=== PATIENT | female | born 1980 | race Caucasian/White ===

== ENCOUNTER → 2016-04-11 | Outpatient (CLI) | payer OTHER ==
[~2016-04-11] MED LIST: /AUGM875TA; ACET65TA; BENZAMYCGE TOPICAL; FERR325T3 PO; IRON28TA; LABE20TAB PO; LOESTRIN24 PO; MOTR200T44 PO; ORTHOTRI PO; PERC5TAB6 PO; PERC7.5T8; PERCOCET PO; THERGRAN; [UNRECOGNIZED DRUG - OTHER]
[2016-04-11 16:19] LABS: PERCENT SATURATION 3.9 % (13.2-37.4)
== END ==
LOC: M WUC 13:11
PROVIDERS: ATTEND Internal Medicine Cardiovascular Disease
DX: D64.9 Anemia, unspecified (principal)

== ENCOUNTER → 2017-11-03 | Outpatient (CLI) | payer OTHER | LOC: M RAD 17:14 | DX: Z36.9 Encounter for antenatal screening, unspecified (principal); Z3A.01 Less than 8 weeks gestation of pregnancy | CPT/HCPCS: 76801 ==

== ENCOUNTER → 2022-06-27 | Outpatient (REF) | payer OTHER ==
[~2022-06-27] MED LIST changes: +PERC5TAB12 PO; -PERC5TAB6 PO
== END ==
LOC: M WUC 20:28
PROVIDERS: ATTEND Student in an Organized Health Care Education/Training Program
DX: R30.0 Dysuria (principal)

== ENCOUNTER → 2023-09-25 | Outpatient (CLI) | payer OTHER ==
[2023-09-25 18:43] LABS: CARCINOEMBRYONIC ANTIGEN < 2.0 NG/ML (<2.5)
[2023-09-25 18:59] LABS: CA15-3 ANTIGEN 27.3 U/ML (<32.4)
== END ==
LOC: M WUC 12:36
PROVIDERS: ATTEND Nurse Practitioner Adult Health
DX: K76.9 Liver disease, unspecified (principal); M89.9 Disorder of bone, unspecified; N63.20 Unspecified lump in the left breast, unspecified quadrant

== ENCOUNTER → 2023-10-06 | Outpatient (CLI) | payer OTHER ==
[2023-10-06 14:43] LABS: ALBUMIN 3.4 G/DL (3.2-5.2); ALKALINE PHOSPHATASE 159 U/L (46-116); ALT/SGPT 54 U/L (7.0-40); AST/SGOT 351 U/L (<34); BILIRUBIN,TOTAL 0.3 MG/DL (0.3-1.2); BLOOD UREA NITROGEN 28 MG/DL (9-23); CALCIUM LEVEL 12.3 MG/DL (8.5-10.1); CARBON DIOXIDE LEVEL 25 MMOL/L (20-31); CHLORIDE LEVEL 98 MMOL/L (98-107); CREATININE FOR GFR 0.91 MG/DL (0.55-1.30); GLOMERULAR FILTRATION RATE > 60.0 (>58); GLUCOSE, FASTING 89 MG/DL (60-100); POTASSIUM SERUM 4.4 MMOL/L (3.5-5.1); SODIUM LEVEL 134 MMOL/L (136-145); TOTAL PROTEIN 7.6 G/DL (5.7-8.2)
== END ==
LOC: M LAB 13:12
PROVIDERS: ATTEND Internal Medicine Hematology & Oncology
DX: C79.9 Secondary malignant neoplasm of unspecified site (principal); C50.912 Malignant neoplasm of unspecified site of left female breast; D64.9 Anemia, unspecified

== ENCOUNTER → 2023-11-12 | Outpatient (CLI) | payer OTHER ==
[2023-11-12 10:16] LABS: HEMATOCRIT 23.6 % (36.0-47.0); HEMOGLOBIN 7.5 g/dl (12.0-15.5); MEAN CORPUSCULAR HEMOGLOBIN 26.9 pg (27.0-33.0); MEAN CORPUSCULAR HGB CONC 31.8 g/dl (32.0-36.5); MEAN CORPUSCULAR VOLUME 84.6 fl (80.0-96.0); RED BLOOD COUNT 2.79 10^6/uL (4.00-5.40); WHITE BLOOD COUNT 6.1 10^3/uL (4.0-10.0)
[2023-11-12 10:47] LABS: PLATELET COUNT, AUTOMATED 75 10^3/uL (150-450)
[2023-11-12 10:48] LABS: ALKALINE PHOSPHATASE 338 U/L (46-116); ALT/SGPT 99 U/L (7.0-40); AST/SGOT 142 U/L (<34); BILIRUBIN,TOTAL 0.4 MG/DL (0.3-1.2); BLOOD UREA NITROGEN 10 MG/DL (9-23); CALCIUM LEVEL 8.8 MG/DL (8.5-10.1); CARBON DIOXIDE LEVEL 24 MMOL/L (20-31); CHLORIDE LEVEL 107 MMOL/L (98-107); CREATININE FOR GFR 0.63 MG/DL (0.55-1.30); GLOMERULAR FILTRATION RATE > 60.0 (>58); GLUCOSE, FASTING 97 MG/DL (60-100); POTASSIUM SERUM 3.9 MMOL/L (3.5-5.1); SODIUM LEVEL 137 MMOL/L (136-145); TOTAL PROTEIN 6.9 G/DL (5.7-8.2)
[2023-11-12 10:53] LABS: ATYPICAL LYMPH 1 % (0-5); LYMPHOCYTES 30 % (16-44); METAMYELOCYTES 1 % (0-0); MONOCYTES 7 % (0-5); MYELOCYTES 1 % (0-0); NEUTROPHILS 55 % (28-66)
[2023-11-12 10:54] LABS: ANISOCYTOSIS 3+; HYPOCHROMASIA 1+; PLATELET ESTIMATE DECREASED (NORMAL)
[2023-11-12 10:55] LABS: HELMET CELLS 1+; TEAR DROP CELLS 1+
[2023-11-12 10:56] LABS: POLYCHROMASIA 1+
== END ==
LOC: M WUC 08:17
PROVIDERS: ATTEND Internal Medicine Hematology & Oncology
DX: C79.9 Secondary malignant neoplasm of unspecified site (principal); D64.9 Anemia, unspecified

== ENCOUNTER 2023-12-16 09:25 | Observation (INO) | payer OTHER ==
[~2023-12-16] VITALS: Ht 177.8 cm; Wt 77.2 kg
[2023-12-16] MEDS: LIDOCAINE 5% (LIDODERM) PATCH TD SCH (09:00)
[~2023-12-16 09:25] MED LIST changes: +DULoxetine 30MG CAPSULE (CYMBALTA) PO SCH
[2023-12-16] MEDS ORDERED: ONDA-282 PO (09:41)
[2023-12-16] MEDS ORDERED: OXYC-517 PO (09:41)
[2023-12-16] MEDS ORDERED: MORP-69 PO (09:41)
[2023-12-16] MEDS ORDERED: DULO1CAP5 PO (09:41)
[2023-12-16] MEDS ORDERED: PANT40TA29 PO (09:41)
[2023-12-16] MEDS ORDERED: LIDO1PAD TD (09:41)
[2023-12-16] MEDS ORDERED: GABA-1172 PO (09:41)
[2023-12-16] MEDS ORDERED: TRAN650T PO (09:41)
[2023-12-16] MEDS ORDERED: SENN1TAB96 PO (09:41)
[2023-12-16] MEDS ORDERED: MEGE40TA3 PO (09:41)
[2023-12-16] MEDS ORDERED: LORA1TAB23 PO (09:41)
[2023-12-16] MEDS ORDERED: LIDO30CR18 TD (09:41)
[2023-12-16 10:35] LABS: VENOUS BASE EXCESS -9.7 (-2.0-2.0); VENOUS HCO3 16.5 MMOL/L (23.0-27.0); VENOUS O2 SATURATION 45.4 % (60.0-80.0); VENOUS PARTIAL PRESSURE CO2 37.1 mmHg (38.0-50.0); VENOUS PARTIAL PRESSURE O2 27.2 mmHg (30.0-50.0); VENOUS PH 7.266 UNITS (7.330-7.430); VENOUS STANDARD HCO3 15.9 MMOL/L; VENOUS TOTAL CO2 17.6 MMOL/L (24.0-28.0)
[2023-12-16 10:37] LABS: HEMATOCRIT 28.3 % (36.0-47.0); HEMOGLOBIN 9.6 g/dl (12.0-15.5); MEAN CORPUSCULAR HEMOGLOBIN 28.6 pg (27.0-33.0); MEAN CORPUSCULAR HGB CONC 33.9 g/dl (32.0-36.5); MEAN CORPUSCULAR VOLUME 84.2 fl (80.0-96.0); RED BLOOD COUNT 3.36 10^6/uL (4.00-5.40); WHITE BLOOD COUNT 5.8 10^3/uL (4.0-10.0)
[2023-12-16 10:41] LABS: PLATELET COUNT, AUTOMATED 57 10^3/uL (150-450)
[2023-12-16] MEDS: NS 2,180 ML in IV 1 EA IV ONE (10:41)
[2023-12-16 10:44] LABS: INR 1.1; PARTIAL THROMBOPLASTIN TIME 31.5 SECONDS (24.8-34.2); PROTHROMBIN TIME 14.5 SECONDS (12.5-14.5)
[2023-12-16 10:52] LABS: C REACTIVE PROTEIN QUANTITATIV 6.1 MG/DL (<1.0)
[2023-12-16 10:54] LABS: ALBUMIN 2.4 G/DL (3.2-5.2); BILIRUBIN,DIRECT 0.8 MG/DL (<0.4); BILIRUBIN,TOTAL 1.5 MG/DL (0.3-1.2); CALCIUM LEVEL 7.8 MG/DL (8.5-10.1); CREATININE FOR GFR 1.22 MG/DL (0.55-1.30); GLOMERULAR FILTRATION RATE 51.7 (>58); POTASSIUM SERUM 4.6 MMOL/L (3.5-5.1)
[2023-12-16] MEDS: CEFEPIME HCL 2 GM in DEXTROSE 5% (D5W) ADV/MINI-BAG 50 ML IV ONE (10:54)
[2023-12-16 11:06] LABS: PROCALCITONIN 2.03 ng/ml
[2023-12-16 11:21] LABS: LYMPHOCYTES 11 % (16-44); MONOCYTES 2 % (0-5); NEUTROPHILS 85 % (28-66); PLATELET ESTIMATE MARKED DECREASE (NORMAL)
[2023-12-16 11:22] LABS: ANISOCYTOSIS 2+; HYPOCHROMASIA 1+
[2023-12-16 11:23] LABS: APPEARANCE, URINE HAZY (CLEAR); BACTERIA, URINE AUTO NEGATIVE (NEGATIVE); BILIRUBIN, URINE AUTO NEGATIVE (NEGATIVE); BLOOD, URINE BLOOD 2+ (NEGATIVE); COLOR, URINE YELLOW (YELLOW); GLUCOSE, URINE (UA) AUTO 1+ mg/dL (NEGATIVE); KETONE, URINE AUTO NEGATIVE (NEGATIVE); LEUKOCYTE ESTERASE, URINE AUTO 1+ (NEGATIVE); MUCUS, URINE SMALL (NEGATIVE); NITRITE, URINE AUTO NEGATIVE (NEGATIVE); PROTEIN, URINE AUTO 1+ mg/dL (NEGATIVE); RBC, URINE AUTO 5 /HPF (0-3); SPECIFIC GRAVITY URINE AUTO 1.023 (1.002-1.035); SQUAMOUS EPITHELIAL CELL UR AU 0 /HPF (0-6); WBC, URINE AUTO 13 /HPF (0-3)
[2023-12-16 11:37] LABS: MAGNESIUM LEVEL 1.8 MG/DL (1.8-2.4)
[2023-12-16] MEDS ORDERED: HOME MED LIST COMPLETE! XX SCH (11:40)
[2023-12-16] MEDS ORDERED: ISOVUE-370 76% 100ML VIAL As Ordered ONE (11:47)
[2023-12-16] MEDS ORDERED: MAALOX 30 ML SUSP *UDC PO PRN (13:25)
[2023-12-16] MEDS ORDERED: ACETAMINOPHEN 325 MG TAB PO PRN (13:25)
[2023-12-16] MEDS ORDERED: MOM 30ML SUSPENSION UDC PO PRN (13:25)
[2023-12-16] MEDS: NS 1,000 ML IV ONE (13:36)
[2023-12-16] MEDS ORDERED: MORPHINE 15 MG SA TAB PO PRN (13:40)
[2023-12-16] MEDS ORDERED: ONDANSETRON 4MG ORAL DISINTEGRATING TAB PO PRN (13:40)
[2023-12-16] MEDS ORDERED: SENOKOT S TAB PO PRN (13:40)
[2023-12-16] MEDS ORDERED: LORazepam 1 MG TAB PO PRN (13:40)
[2023-12-16] MEDS: NS 1,000 ML IV SCH ×2 (14:59→18:45)
[2023-12-16] MEDS: PANTOPRAZOLE 40MG TAB (PROTONIX) PO SCH (14:59)
[2023-12-16 15:10] VITALS: BP 129/70; TEMP 97; O2SAT 100
[2023-12-16] MEDS ORDERED: LIDO5DIS41 TOP (15:55)
[2023-12-16] MEDS ORDERED: LIDOCAINE 5% (LIDODERM) PATCH TD PRN (15:55)
[2023-12-16 16:22] VITALS: BP 122/72; TEMP 97.2; O2SAT 100
[2023-12-16] MEDS: LevoFLOXacin IV 750 MG in IV 1 EA IV SCH (17:13)
[2023-12-16] MEDS: TRANEXAMIC ACID 650MG TABLET (LYSTEDA) PO SCH (17:13)
[2023-12-16] MEDS: MEGESTROL 40MG TAB PO SCH (17:13)
[2023-12-16] MEDS: oxyCODONE 5MG TAB PO PRN (17:14)
[2023-12-16 19:50] VITALS: BP 116/60; TEMP 98.7; O2SAT 100
[2023-12-16] MEDS: DULoxetine 30MG CAPSULE (CYMBALTA) PO SCH (20:37)
[2023-12-16] MEDS: DOCUSATE SODIUM 100MG CAPSULE PO SCH (20:37)
[2023-12-16] MEDS: MORPHINE 15 MG SA TAB PO SCH (20:37)
[2023-12-16] MEDS: GABAPENTIN 300 MG CAP PO SCH (20:37)
[2023-12-16 23:06] VITALS: BP 90/46; TEMP 98.6; O2SAT 100
[2023-12-17] VITALS (9 sets, daily range): BP systolic 97–126; BP diastolic 54–78; TEMP 97–98.5; O2SAT 98–100
[2023-12-17 06:55] LABS: BASO % 0.4 % (0.0-1.0); EOS % 0.4 % (0.0-3.0); LYMPH # 0.6 10^3/uL (1.5-5.0); LYMPH % 24.1 % (24.0-44.0); MEAN CORPUSCULAR HEMOGLOBIN 28.4 pg (27.0-33.0); MEAN CORPUSCULAR HGB CONC 33.2 g/dl (32.0-36.5); MEAN CORPUSCULAR VOLUME 85.6 fl (80.0-96.0); MONO # 0.1 10^3/uL (0.0-0.8); MONO % 2.2 % (2.0-8.0); NEUTROPHILS # 1.6 10^3/uL (1.5-8.5); NEUTROPHILS % 70.7 % (36.0-66.0); RED BLOOD COUNT 2.22 10^6/uL (4.00-5.40); WHITE BLOOD COUNT 2.3 10^3/uL (4.0-10.0)
[2023-12-17 06:56] LABS: HEMOGLOBIN 6.3 g/dl (12.0-15.5)
[2023-12-17 06:58] LABS: PLATELET COUNT, AUTOMATED 28 10^3/uL (150-450)
[2023-12-17 07:22] LABS: ALBUMIN 2.1 G/DL (3.2-5.2); ALKALINE PHOSPHATASE 229 U/L (35-104); ALT/SGPT 367 U/L (7.0-40); AST/SGOT 229 U/L (<34); BILIRUBIN,TOTAL 0.8 MG/DL (0.3-1.2); BLOOD UREA NITROGEN 25 MG/DL (9-23); CALCIUM LEVEL 7.9 MG/DL (8.5-10.1); CARBON DIOXIDE LEVEL 19 MMOL/L (20-31); CHLORIDE LEVEL 113 MMOL/L (98-107); GLOMERULAR FILTRATION RATE > 60.0 (>58); GLUCOSE, FASTING 90 MG/DL (60-100); MAGNESIUM LEVEL 1.8 MG/DL (1.8-2.4); POTASSIUM SERUM 4.7 MMOL/L (3.5-5.1); SODIUM LEVEL 137 MMOL/L (136-145); TOTAL PROTEIN 4.4 G/DL (5.7-8.2)
[2023-12-17] MEDS: ENOXAPARIN 40MG/0.4ML SYRINGE (J1650 PER 10MG) SC SCH (08:54)
[2023-12-17] MEDS ORDERED: EMLA CREAM 5GM TUBE (LIDOCAINE/PRILOCAINE) XX SCH (09:00)
[2023-12-17] MEDS: LevoFLOXacin 750 MG TABLET PO SCH (16:43)
[2023-12-17] MEDS ORDERED: LEVO1TAB40 PO (17:06)
[2023-12-17 17:13] LABS: HEMATOCRIT 25.7 % (36.0-47.0); HEMOGLOBIN 8.7 g/dl (12.0-15.5); MEAN CORPUSCULAR HEMOGLOBIN 29.1 pg (27.0-33.0); MEAN CORPUSCULAR HGB CONC 33.9 g/dl (32.0-36.5); RED BLOOD COUNT 2.99 10^6/uL (4.00-5.40); WHITE BLOOD COUNT 2.2 10^3/uL (4.0-10.0)
[2023-12-17 17:14] LABS: PLATELET COUNT, AUTOMATED 24 10^3/uL (150-450)
== END 2023-12-17 18:46 | disposition left against medical advice (07) ==
LOC: M ED 09:25 → M ED INP 09:26 → M PCU 15:03
PROVIDERS: ADMIT Internal Medicine; ATTEND Internal Medicine
DX: I95.9 Hypotension, unspecified (principal); D61.811 Other drug-induced pancytopenia; E87.1 Hypo-osmolality and hyponatremia; R74.01 Elevation of levels of liver transaminase levels; E80.6 Other disorders of bilirubin metabolism; I10 Essential (primary) hypertension; F32.A Depression, unspecified; F41.9 Anxiety disorder, unspecified; K21.9 Gastro-esophageal reflux disease without esophagitis; C50.919 Malignant neoplasm of unspecified site of unspecified female breast; C78.7 Secondary malignant neoplasm of liver and intrahepatic bile duct; C79.51 Secondary malignant neoplasm of bone; Z90.49 Acquired absence of other specified parts of digestive tract; Z79.899 Other long term (current) drug therapy
CPT/HCPCS: 36415; 71045; 71275; 74177; 80048; 80053; 80076; 81001; 82150; 82330; 82803; 83605; 83735; 84145; 85025; 85027; 85049; 85055; 85610; 85730; 86140; 86850; 86900; 86901; 86920; 87040; 87086; 87486; 87581; 87633; 87798; 93005; 93041; 93971; 94760; 96361; 96365; 96366; 96367; 99285; J0692; J1956; P9040; Q9967

== ENCOUNTER → 2023-12-25 | Outpatient (REF) | payer OTHER ==
[~2023-12-25] MED LIST changes: +DULO1CAP5 PO; -DULoxetine 30MG CAPSULE (CYMBALTA) PO SCH; +GABA-1172 PO; +LEVO1TAB40 PO; +LIDO1PAD TD; +LIDO30CR18 TD; +LIDO5DIS41 TOP; +LORA1TAB23 PO; +MEGE40TA3 PO; +MORP-69 PO; +ONDA-282 PO; +OXYC-517 PO; +PANT40TA29 PO; +SENN1TAB96 PO; +TRAN650T PO
[2023-12-25 12:12] LABS: HEMATOCRIT 23.7 % (36.0-47.0); HEMOGLOBIN 7.6 g/dl (12.0-15.5); MEAN CORPUSCULAR HEMOGLOBIN 29.9 pg (27.0-33.0); MEAN CORPUSCULAR HGB CONC 32.1 g/dl (32.0-36.5); MEAN CORPUSCULAR VOLUME 93.3 fl (80.0-96.0); PLATELET COUNT, AUTOMATED 160 10^3/uL (150-450); RED BLOOD COUNT 2.54 10^6/uL (4.00-5.40); WHITE BLOOD COUNT 2.8 10^3/uL (4.0-10.0)
[2023-12-25 13:16] LABS: ANISOCYTOSIS 2+; ATYPICAL LYMPH 2 % (0-5); LYMPHOCYTES 34 % (16-44); METAMYELOCYTES 4 % (0-0); MONOCYTES 15 % (0-5); MYELOCYTES 2 % (0-0); NEUTROPHILS 34 % (28-66)
[2023-12-25 13:18] LABS: HYPOCHROMASIA 1+; PLATELET ESTIMATE NORMAL (NORMAL)
== END ==
LOC: M LABWUC 11:22
PROVIDERS: ATTEND Internal Medicine
DX: D61.818 Other pancytopenia (principal)

== ENCOUNTER → 2024-01-09 | Outpatient (REF) | payer OTHER ==
[2024-01-09 19:55] LABS: HEMATOCRIT 22.8 % (36.0-47.0); HEMOGLOBIN 7.5 g/dl (12.0-15.5); LYMPH # 0.7 10^3/uL (1.5-5.0); LYMPH % 37.6 % (24.0-44.0); MEAN CORPUSCULAR HEMOGLOBIN 30.5 pg (27.0-33.0); MEAN CORPUSCULAR HGB CONC 32.9 g/dl (32.0-36.5); MEAN CORPUSCULAR VOLUME 92.7 fl (80.0-96.0); MONO # 0.2 10^3/uL (0.0-0.8); MONO % 9.3 % (2.0-8.0); NEUTROPHILS % 51.6 % (36.0-66.0); RED BLOOD COUNT 2.46 10^6/uL (4.00-5.40); WHITE BLOOD COUNT 1.9 10^3/uL (4.0-10.0)
[2024-01-09 20:25] LABS: PLATELET COUNT, AUTOMATED 18 10^3/uL (150-450)
[2024-01-09 20:31] LABS: ALBUMIN 2.7 G/DL (3.2-5.2); ALKALINE PHOSPHATASE 261 U/L (35-104); ALT/SGPT 127 U/L (7.0-40); AST/SGOT 103 U/L (<34); BILIRUBIN,TOTAL 1.1 MG/DL (0.3-1.2); BLOOD UREA NITROGEN 33 MG/DL (9-23); CALCIUM LEVEL 8.8 MG/DL (8.5-10.1); CARBON DIOXIDE LEVEL 19 MMOL/L (20-31); CHLORIDE LEVEL 109 MMOL/L (98-107); CREATININE FOR GFR 0.94 MG/DL (0.55-1.30); GLOMERULAR FILTRATION RATE > 60.0 (>58); GLUCOSE, FASTING 86 MG/DL (60-100); POTASSIUM SERUM 4.4 MMOL/L (3.5-5.1); SODIUM LEVEL 138 MMOL/L (136-145); TOTAL PROTEIN 5.5 G/DL (5.7-8.2)
== END ==
LOC: M LAB REF 19:28
PROVIDERS: ATTEND Internal Medicine Hematology & Oncology
DX: C50.912 Malignant neoplasm of unspecified site of left female breast (principal); C79.9 Secondary malignant neoplasm of unspecified site; D64.9 Anemia, unspecified

== ENCOUNTER → 2024-01-13 | Outpatient (REF) | payer OTHER ==
[2024-01-13 18:44] LABS: HEMATOCRIT 21.1 % (36.0-47.0); MEAN CORPUSCULAR HEMOGLOBIN 31.2 pg (27.0-33.0); MEAN CORPUSCULAR HGB CONC 32.2 g/dl (32.0-36.5); MEAN CORPUSCULAR VOLUME 96.8 fl (80.0-96.0); PLATELET COUNT, AUTOMATED 108 10^3/uL (150-450); RED BLOOD COUNT 2.18 10^6/uL (4.00-5.40); WHITE BLOOD COUNT 3.3 10^3/uL (4.0-10.0)
[2024-01-13 19:03] LABS: HEMOGLOBIN 6.8 g/dl (12.0-15.5)
[2024-01-13 19:15] LABS: ALBUMIN 2.9 G/DL (3.2-5.2); ALKALINE PHOSPHATASE 269 U/L (35-104); ALT/SGPT 73 U/L (7.0-40); AST/SGOT 70 U/L (<34); BILIRUBIN,TOTAL 0.8 MG/DL (0.3-1.2); BLOOD UREA NITROGEN 18 MG/DL (9-23); CALCIUM LEVEL 8.8 MG/DL (8.5-10.1); CARBON DIOXIDE LEVEL 20 MMOL/L (20-31); CHLORIDE LEVEL 111 MMOL/L (98-107); CREATININE FOR GFR 0.85 MG/DL (0.55-1.30); GLOMERULAR FILTRATION RATE > 60.0 (>58); GLUCOSE, FASTING 89 MG/DL (60-100); POTASSIUM SERUM 4.4 MMOL/L (3.5-5.1); SODIUM LEVEL 137 MMOL/L (136-145); TOTAL PROTEIN 5.7 G/DL (5.7-8.2)
[2024-01-13 19:55] LABS: ANISOCYTOSIS 2+; ATYPICAL LYMPH 1 % (0-5); LYMPHOCYTES 25 % (16-44); METAMYELOCYTES 3 % (0-0); MONOCYTES 15 % (0-5); MYELOCYTES 1 % (0-0); NEUTROPHILS 51 % (28-66); PLATELET ESTIMATE DECREASED (NORMAL)
[2024-01-13 19:56] LABS: POLYCHROMASIA 1+
== END ==
LOC: M LABWUC 16:24 → M LAB REF 16:24
PROVIDERS: ATTEND Internal Medicine Hematology & Oncology
DX: C79.9 Secondary malignant neoplasm of unspecified site (principal); D64.9 Anemia, unspecified; C50.912 Malignant neoplasm of unspecified site of left female breast

== ENCOUNTER → 2024-01-30 | Outpatient (CLI) | payer OTHER ==
[2024-01-30 19:32] LABS: ALBUMIN 3.1 G/DL (3.2-5.2); BILIRUBIN,TOTAL 2.6 MG/DL (0.3-1.2); CALCIUM LEVEL 10.2 MG/DL (8.5-10.1); CREATININE FOR GFR 1.68 MG/DL (0.55-1.30); GLOMERULAR FILTRATION RATE 35.7 (>58); POTASSIUM SERUM 5.1 MMOL/L (3.5-5.1); TOTAL PROTEIN 7.1 G/DL (5.7-8.2)
[2024-01-30 19:39] LABS: HEMATOCRIT 27.7 % (36.0-47.0); HEMOGLOBIN 8.7 g/dl (12.0-15.5); MEAN CORPUSCULAR HEMOGLOBIN 31.3 pg (27.0-33.0); MEAN CORPUSCULAR HGB CONC 31.4 g/dl (32.0-36.5); MEAN CORPUSCULAR VOLUME 99.6 fl (80.0-96.0); RED BLOOD COUNT 2.78 10^6/uL (4.00-5.40); WHITE BLOOD COUNT 3.2 10^3/uL (4.0-10.0)
[2024-01-30 19:53] LABS: PLATELET COUNT, AUTOMATED 43 10^3/uL (150-450)
[2024-01-30 20:41] LABS: ATYPICAL LYMPH 4 % (0-5); BASOPHILS 3 % (0-1); LYMPHOCYTES 23 % (16-44); MONOCYTES 4 % (0-5); NEUTROPHILS 63 % (28-66)
[2024-01-30 20:42] LABS: OVALOCYTES 1+; PLATELET ESTIMATE MARKED DECREASE (NORMAL)
[2024-01-30 20:43] LABS: ANISOCYTOSIS 1+; TEAR DROP CELLS 1+
[2024-01-30 20:44] LABS: BURR CELLS 1+; HYPOCHROMASIA 1+; POIKILOCYTOSIS 2+
== END ==
LOC: M WUC 10:43
PROVIDERS: ATTEND Internal Medicine Hematology & Oncology
DX: C79.9 Secondary malignant neoplasm of unspecified site (principal); D64.9 Anemia, unspecified; C50.912 Malignant neoplasm of unspecified site of left female breast